=== PATIENT | female | born 1940 ===

== ENCOUNTER 2021-04-15 12:20 | Outpatient (RCR) | payer MEDICARE, SELFPAY ==
[2021-04-15 15:47] VITALS: BP 132/53; PULSE 88; TEMP 36.6; O2SAT 99
[2021-04-15] MEDS: diphenhydrAMINE HCl CAP 25 MG CAPSULE PO (15:49)
[2021-04-15] MEDS: FAMOTIDINE 20 MG TABLET PO (15:49)
[2021-04-15] MEDS: ACETAMINOPHEN 325 MG TABLET 650 MG PO (15:49)
[2021-04-15 17:10] VITALS: BP 118/72; PULSE 83; O2SAT 98
== END 2021-04-15 17:00 ==
LOC: AMCINF 12:20
PROVIDERS: PCP Internal Medicine; Visit Provider Internal Medicine Hematology & Oncology
DX: U07.1 COVID-19 (principal); I10 Essential (primary) hypertension; I25.10 Atherosclerotic heart disease of native coronary artery without angina pectoris
CPT/HCPCS: A9270; M0247; Q0247